=== PATIENT | male | born 1995 | race Caucasian/White ===

== ENCOUNTER 2016-09-03 05:15 | Day surgery (SDC) | payer BC, OTHER ==
[~2016-09-03] VITALS: Ht 180.3 cm; Wt 89.4 kg
--- NOTE | ~2016-09-03 | O ---
[facility] [place] [address] OPERATIVE REPORT Name: YVAN PONCE Room #: 150-1 [facility]..#: [id number] Admission: 09/03/16 Attend Phys: Rudy Carvalho MD Discharge: Date of : 89 Report #: [id number] THIS REPORT FOR: //name// CC: FAM unknown Rudy Carvalho DATE OF SERVICE: 09/03/2016 DATE OF SURGERY: 09/03/2016. PREOPERATIVE DIAGNOSES: Deviated septum, turbinate hypertrophy, tonsillar hypertrophy. POSTOPERATIVE DIAGNOSES: Deviated septum, turbinate hypertrophy, tonsillar hypertrophy. PROCEDURES: Septoplasty, submucous resection of inferior turbinates with outfracture. SURGEON: Rudy Carvalho M.D. ANESTHESIA: General oral endotracheal. INDICATIONS: See H and P. FINDINGS: Cartilaginous septum was severely deviated well off the maxillary crest on the left side, impacting against the inferior turbinate and causing a small indentation on the inferior turbinate. This continued back into the vomer as well. Posteriorly, the vomer was still somewhat cartilaginous, right greater than left turbinate hypertrophy was noted. Tonsils were 3-4+ in nature. It should be noted that there was significant erythema to the right tonsil, especially on the medial, medial posterior surface with yellowish exudates noted on the right tonsil on the left. Right tonsils fairly firm to touch compared to the left. TECHNIQUE: After obtaining consent, he was brought to the operating suite, appropriate timeout was performed. General oral endotracheal anesthesia was obtained, the bed was turned 90 degrees. Nose was prepped and draped in usual sterile fashion. A 7 mL of 1% Xylocaine 1:100,000 epinephrine were injected on each side of the septum. Later in the case, I injected an additional milliliter into the medial surface of each inferior turbinate, care was made not to inject intravascularly. Cottonoids placed in the nares to allow for further vasoconstriction, these were removed. A right-sided hemitransfixion incision was made using a caudal elevator, I made submucosal flaps exposing the quadrangular cartilage and the [facility] [address] [place] [address] OPERATIVE REPORT Name: YVAN PONCE Room #: 150-1 [facility]..#: [id number] Admission: 09/03/16 Attend Phys: Rudy Carvalho MD Discharge: Date of : 96 Report #: [id number] anterior portion of the perpendicular plate and the vomer on the left side. Because of a large sharp spurring of the quadrangular cartilage tunnels made above and below this large sharp spurring but an inadvertent and not unexpected tear curve along the linear aspect of that large spur. Care was made not to have a mucosal tear on the right mucosal flap and this was preserved. A large portion of the inferior quadrangular cartilage, incision was made across this and a rectangular shaped leaving enough anteriorly and superiorly for tip support. I then elevated mucosal flap off the large deviation on the right side at raising the mucosal flap carefully to prevent any tearing. This large deviation was then removed in piecemeal fashion. I then disarticulated the bony cartilaginous junction and further elevated on the vomer and the anterior perpendicular plane on the right side. The back along the vomer and perpendicular plate using [place]icks[place]-García punches, the deviated bony septum was removed. I then returned and elevated on both sides down to the nasal floor. Using Smicksburg-García scissors and amputated below the quadrangular cartilage deviation. I then continued back elevation on the left side to fully expose the deviation on the left side inferiorly down to the nasal floor and using again the Mikhail's or Joselo-García punches to remove the deviation of the vomer. Upon removal this had greatly improved airflow on the left side. There was a linear anterior, posterior tear of the mucosal flap on the left side and adjacent on the right. Previously harvested cartilage was then trimmed thoroughly morcellized that was flat without any "memory" and placed back between the septal folds. Care is being made unfurled the septal fold on the left side fully. Hemitransfixion incision was closed in simple interrupted 4-0 chromic sutures. I then turned my attention to the turbinates for the injected the local anesthetic, a small anterior stab incision was made and a mucosal flap was elevated on the medial, medial inferior surface of each inferior turbinate along the anterior half. Using a microdebrider 2.0 blade, I then performed submucous resection of the inferior turbinate mucosa and bone. I then outfractured each inferior turbinate further with the [place] elevator. Simple splints were designed and fashioned by myself, placed on each side of the septum and secured with 3-0 Prolene suture, tying on the right side. A single piece of Merogel was then placed between the septum and the inferior turbinate to prevent synechia. Prior to placing the splints I did make sure that the mucosal flap was unfurled on the left side. The nasopharynx was suctioned free of secretions. I then used a large slotted McIvor mouth gag was used to open the oral cavity and suspended this from the Jackson stand. Visual inspection did show some hyperemia of the right tonsil and greater than left, especially on the medial, medial inferior surface and there was some exudate present on the right superior tonsil. On palpation of the right tonsil is fairly firm as well. Given the findings of possible infection within the tonsillar certainly at least lymphoid hyperemia. I elected at this point to not proceed with a tonsillectomy, we will return at a later date to complete this portion of the procedure when the patient is in better health orally. He was allowed to awaken from anesthesia, [facility] [address] [place] [address] OPERATIVE REPORT Name: YVAN PONCE Room #: 150-1 [facility]#: [id number] Admission: 09/03/16 Attend Phys: Rudy Carvalho MD Discharge: Date of : 96 Report #: [id number] went to recovery room in stable condition. ESTIMATED BLOOD LOSS: About 20 mL. By: 0958 Rudy Carvalho MD /nt
--- NOTE | ~2016-09-03 | H ---
[facility] [place] [address] HISTORY AND PHYSICAL Name: YVAN PONCE Room #: 150-1 [facility]..#: [id number] Admission: 09/03/16 Attend Phys: Rudy Carvalho MD Discharge: Date of : 89 Report #: [id number] THIS REPORT FOR: //name// CC: FAM unknown Rudy Carvalho DATE OF SERVICE: 09/03/2016 CHIEF COMPLAINT: Nasal airway obstruction, tonsillar hypertrophy. HISTORY OF PRESENT ILLNESS: The patient is a 20-year-old gentleman who was seen in July of this year with complaints of loud snoring, nasal obstruction especially on the left side. It is also noted that his tonsils are enlarged. He has hyponasal speech and mild snoring was noted. He has not had frequent episodes of tonsillitis, however. Physical examination did demonstrate a rather significant septal deviation with left side impinging along the inferior turbinate with left and right turbinate hypertrophy. Oral cavity examination showed 3+ enlarged tonsils. Given the history of significant septal deflection, which is likely causing the nasal airway obstruction along with tonsillar hypertrophy, the latter likely causing some additional effect on his sleep behavior. I discussed with him elective septal and turbinate surgery and the risks and benefits involved with surgery and the options of not doing surgery and postop treatment plan. Also discussed the possibility of elective tonsillectomy and the risks and benefits of doing the procedure and the option of observation as his tonsils will regress to some degree as he ages as well. All the questions were answered. Based on this, he does wish to proceed forward at this time. Plan will be for the above-mentioned surgery. ALLERGIES TO MEDICATION: None. MEDICATIONS ON ADMISSION: None. PAST MEDICAL AND SURGICAL HISTORY: Previous history of extraction of wisdom teeth, some surgery on his shoulder joint. FAMILY HISTORY: Noncontributory. REVIEW OF SYSTEMS: Negative for any GI, , cardiovascular or pulmonary abnormalities. PHYSICAL EXAMINATION: VITAL SIGNS: Height 5 feet 10 inches, weight of 190 pounds. HEENT: As already described above and the oral cavity and the oropharynx and the nares. NECK: Normal to palpation. CHEST: Clear. [facility] [address] [place] [address] HISTORY AND PHYSICAL Name: YVAN PONCE Room #: 150-1 [facility]#: [id number] Admission: 09/03/16 Attend Phys: Rudy Carvalho MD Discharge: Date of : 96 Report #: [id number] CARDIOVASCULAR: Regular rate, regular rhythm. ASSESSMENT: History of tonsillar enlargement, nasal airway obstruction and turbinate hypertrophy. PLAN: Will be for above-mentioned surgery. <ELECTRONICALLY SIGNED> By: Rudy Carvalho MD 09/03/16 0908 1700 1743 Rudy Carvalho MD /nt
[2016-09-03 07:00] VITALS: BP 130/76
[2016-09-03 09:17] VITALS: BP 130/76
== END 2016-09-03 10:10 | disposition home or self-care (01) ==
LOC: OR 05:15 → TBA 05:15 → OR 10:10
DX: J34.2 Deviated nasal septum (principal); J34.3 Hypertrophy of nasal turbinates; J35.1 Hypertrophy of tonsils; Z98.890 Other specified postprocedural states
CPT/HCPCS: 50010; 50101; 50386; 50398; 50426; 50951; 51316; 51634; 53635; 56526; 56528; 62110; 62900; 70005

== ENCOUNTER 2016-10-01 05:18 | Day surgery (SDC) | payer BC, OTHER ==
[~2016-10-01] VITALS: Ht 180.3 cm; Wt 88.5 kg
--- NOTE | ~2016-10-01 | O ---
[facility] [place] [address] OPERATIVE REPORT Name: YVAN PONCE Room #: 150-1 [facility]#: [id number] Admission: 10/01/16 Attend Phys: Rudy Carvalho MD Discharge: Date of : 89 Report #: [id number] THIS REPORT FOR: //name// CC: [place] physician/PCP Rudy Carvalho DATE OF SERVICE: 10/01/2016 PREOPERATIVE DIAGNOSIS: Tonsillar hypertrophy. POSTOPERATIVE DIAGNOSIS: Tonsillar hypertrophy. PROCEDURE: Tonsillectomy. SURGEON: Rudy Carvalho M.D. ANESTHESIA: General oral endotracheal. INDICATIONS: See H and P. FINDINGS: Tonsils were nearly 4+ in nature, extremely cryptic. No aberrant tonsil pulsations were noted. TECHNIQUE: After obtaining consent, the patient was brought to the operating suite, appropriate timeout was performed. General oral endotracheal anesthesia was maintained and obtained via an oral and IV route. The bed was turned 90 degrees and he was placed in a modified Caroline position with mild neck hyperextension with a small shoulder roll. Madonna head drape was applied. A large slotted McIvor mouth gag was used to open the oral cavity and suspended from the Jackson stand. Inspection of the tonsils was as noted above. Red rubber catheter was placed through the right naris, brought out the oral cavity to suspend the soft palate. The right tonsil was grasped and superior pole medialized with a curved tonsil forceps. The Coblator wand on a setting of 7/3 was then used to remove the tonsil in a superior to inferior fashion, care being made to respect the plane between the tonsil tissue and the muscular plane. Hemostasis was obtained with the use of the Coblator wand coagulation setting. Attention was then turned to the left tonsil where a similar procedure was performed by grasping the superior pole and rolling the tonsil on a superior to inferior, lateral to medial direction. Was during removal of the second tonsil with the wand, electrodes were no longer functioning and switched to a second wand, which malfunctioned and upon opening the last one available yet was malfunctioning from an irrigation standpoint is only 1/3 irrigation ports was allowing water to escape. As I had performed only about half the tonsillectomy on that left side with the Coblator wand, I then elected to switch to a cautery handheld unit to complete the tonsillectomy. With the cautery handheld unit on [address] [address] OPERATIVE REPORT Name: YVAN PONCE Room #: 150-1 [facility].#: [id number] Admission: 10/01/16 Attend Phys: Rudy Carvalho MD Discharge: Date of : 96 Report #: [id number] a setting of 18 of coag procedure, I removed the remainder of the left tonsil along its inferior half with the cautery unit. Upon removal, I switched the suction cautery in the inferior and superior poles and both sides were cauterized on a setting of 25 coagulation. The oropharynx was irrigated multiple times with saline with the effluent returning clear. Positive pressure ventilation was applied by anesthesia. No bleeding was noted. I removed the red rubber catheter and I loosened the mouth gag. After a minute to 2 minutes, I reapplied the mouth gag, reinspected the tonsillar fossa, it was dry. Anesthesia again performed Valsalva maneuver, no bleeding was noted. At this point, the case was terminated. He was allowed to awaken from anesthesia, having met the goals of surgery. ESTIMATED BLOOD LOSS: Approximately 40 mL. By: [id number] 1256 Rudy Carvalho MD /nt
--- NOTE | ~2016-10-01 | S ---
[facility] [place] [address] SURGICAL PATH RPT PROCEDURE Name: YVAN PONCE Room #: [facility]..#: [id number] Admission: 10/01/16 Date of : 89 Discharge: 10/01/16 Report #: [id number] Path Case #: [id number] PATHOLOGY REPORT COLLECTION DATE: 10/01/2016 RECEIVED DATE: 10/01/2016 SUBMITTING PHYS: Dr. Rudy Carvalho OTHER PHYS: SPECIMEN(S) RECEIVED: A.Right tonsil B.Left tonsil * * * * * * * * * * * * FINAL DIAGNOSIS: A. "Right tonsil," tonsillectomy: - Tonsil with lymphoid hyperplasia. B. "Left tonsil," tonsillectomy: - Tonsil with lymphoid hyperplasia. (CLW:; d/t: 10/04/16) PATHOLOGIST: Sabrina Hough M.D. REPORT ELECTRONICALLY SIGNED BY: Sabrina Hough M.D. DATE/TIME: 10/04/2016 20:46 * * * * * * * * * * * * GROSS PATHOLOGY: A. Received in formalin, labeled "Yvan Ponce, right tonsil," is a tonsil measuring 4.0 x 2.8 x 2.3 cm in maximum dimensions. The mucosal surface is mullen with the typical crypts identified. Sectioning reveals lobulated, homogeneous light mullen cut surfaces with no grossly identifiable lesions. [employer] tissue is submitted in cassette A1. B. Received in formalin, labeled "Yvan Ponce, left tonsil," is a tonsil measuring 3.8 x 3.3 x 3.0 cm in maximum dimensions. The mucosal surface is mullen with the typical crypts identified. Sectioning reveals lobulated, homogeneous light mullen cut surfaces with no grossly identifiable lesions. [employer] tissue is submitted in cassette B1. (KAH; 10/02/2016) CLINICAL HISTORY: Hypertrophy of tonsils INITIAL CPT CODE(S): [facility] [place] [address] SURGICAL PATH RPT PROCEDURE Name: YVAN PONCE Room #: [facility] M.R.#: [id number] Admission: 10/01/16 Date of : 89 Discharge: 10/01/16 Report #: [id number] Path Case #: [id number]; [id number] B; [id number] Professional services [address] [facility] [address], [place] [address] Technical services performed by [facility] at [address] [place] [address], [facility] [address] [place] [address]. [facility] [address] [place] [address] PHONE: [phone] DIRECTOR: John Agudelo M.D. * * * END OF REPORT * * *
[2016-10-01 07:00] VITALS: BP 127/77
[2016-10-01 09:59] VITALS: BP 127/77
== END 2016-10-01 12:00 ==
LOC: OR 05:18 → TBA 05:18 → OR 12:00
DX: J35.1 Hypertrophy of tonsils (principal); J34.89 Other specified disorders of nose and nasal sinuses
CPT/HCPCS: 50101; 50664; 62110; 62900; 70005